=== PATIENT | female | born 1995 | race Caucasian/White ===

== ENCOUNTER 2021-04-23 09:49 | Emergency (ER) | payer OTHER, MEDICAID ==
[~2021-04-23] VITALS: Ht 172.7 cm; Wt 130.2 kg
--- NOTE | 2021-04-23 10:02 | ED Abdominal Pain ---
General Stated Complaint: N/V/D; ABD/BACK TIGHTNESS DURING PREG Source of Information: Patient Exam Limitations: No Limitations History of Present Illness Date Seen by Provider: Apr 23, 2021 Time Seen by Provider: 09:57 Initial Comments 25yoF at 19 weeks 5 days gestation coming in for 2 days n/v/d that is nb/nb and low back/low abdominal cramping. Prior had labor around 24 weeks and the tightness in her abdomen and back feel similar. Denies vaginal bleeding, loss of fluids, contractions. The pain lasts about a minutes at a time about every 10 minutes. Took some tylenol this morning which helped some. Her son recently had a GI bug. She has been fully vaccinated for COVID. Allergies and Home Medications Allergies Coded Allergies: No Known Drug Allergies (Unverified , 04/23/21) Patient Home Medication List Home Medication List Reviewed: Yes Review of Systems Review of Systems Constitutional: No chills, No fever EENTM: No Blurred Vision Respiratory: Denies Cough Cardiovascular: Denies Chest Pain Gastrointestinal: Abdominal Pain; Denies Diarrhea, Denies Nausea, Denies Vomiting Genitourinary: Denies Burning Musculoskeletal: no symptoms reported Skin: no symptoms reported Psychiatric/Neurological: No Symptoms Reported Endocrine: No Symptoms Reported Hematologic/Lymphatic: No Symptoms Reported All Other Systems Reviewed Negative Unless Noted: Yes Past Cxchtjr-Flndmh-Mtlfso Hx Patient Social History Tobacco Use?: No Past Medical History Surgeries: Yes Gallbladder Physical Exam Vital Signs Vital Signs - First Documented 04/23/21 09:53 Temp 36.0 Pulse 109 Resp 16 B/P (MAP) 146/96 (113) Pulse Ox 97 O2 Delivery Room Air Capillary Refill : Height/Weight/BMI Height: '" Weight: lbs. oz. kg; BMI Method: General Appearance: WD/WN, no apparent distress HEENT: PERRL/EOMI, normal ENT inspection, pharynx normal Neck: non-tender, full range of motion, supple, normal inspection Respiratory: chest non-tender, lungs clear, normal breath sounds, no respiratory distress, no accessory muscle use Cardiovascular: regular rate, rhythm, no edema, no murmur Gastrointestinal: normal bowel sounds, non tender, soft; No distended, No guarding, No rebound, No tenderness Extremities: normal range of motion, non-tender, normal inspection, no pedal edema, no calf tenderness, normal capillary refill Back: normal inspection, no CVA tenderness, no vertebral tenderness Neurologic/Psychiatric: no motor/sensory deficits, alert, normal mood/affect Skin: normal color, warm/dry Lymphatic: no adenopathy Progress/Results/Core Measures Results/Orders Lab Results Laboratory Tests Test 04/23/21 10:33 04/23/21 10:38 04/23/21 10:50 Range/Units Influenza Type A Antigen NEGATIVE NEGATIVE Influenza Type B Antigen NEGATIVE NEGATIVE Urine Color ORANGE Urine Clarity CLOUDY Urine pH 6.0 5-9 Urine Specific [place] 1.025 H 1.016-1.022 Urine Protein TRACE H NEGATIVE Urine Glucose (UA) NEGATIVE NEGATIVE Urine Ketones TRACE H NEGATIVE Urine Nitrite NEGATIVE NEGATIVE Urine Bilirubin 1+ H NEGATIVE Urine Urobilinogen 0.2 < = 1.0 MG/DL Urine Leukocyte Esterase 1+ H NEGATIVE Urine RBC (Auto) NEGATIVE NEGATIVE Urine RBC 0-2 /HPF Urine WBC 5-10 H /HPF Urine Squamous Epithelial Cells 2-5 /HPF Urine Crystals NONE /LPF Urine Bacteria LARGE H /HPF Urine Casts NONE /LPF Urine Mucus SMALL H /LPF Urine Culture Indicated YES White Blood Count 9.4 4.3-11.0 10^3/uL Red Blood Count 4.46 3.80-5.11 10^6/uL Hemoglobin 13.4 11.5-16.0 g/dL Hematocrit 39 35-52 % Mean Corpuscular Volume 86 80-99 fL Mean Corpuscular Hemoglobin 30 25-34 pg Mean Corpuscular Hemoglobin Concent 35 32-36 g/dL Red Cell Distribution Width 13.0 10.0-14.5 % Platelet Count 199 130-400 10^3/uL Mean Platelet Volume 11.2 9.0-12.2 fL Immature Granulocyte % (Auto) 0 % Neutrophils (%) (Auto) 76 H 42-75 % Lymphocytes (%) (Auto) 18 12-44 % Monocytes (%) (Auto) 5 0-12 % Eosinophils (%) (Auto) 1 0-10 % Basophils (%) (Auto) 0 0-10 % Neutrophils # (Auto) 7.1 1.8-7.8 X 10^3 Lymphocytes # (Auto) 1.7 1.0-4.0 X 10^3 Monocytes # (Auto) 0.5 0.0-1.0 X 10^3 Eosinophils # (Auto) 0.1 0.0-0.3 10^3/uL Basophils # (Auto) 0.0 0.0-0.1 10^3/uL Immature Granulocyte # (Auto) 0.0 0.0-0.1 10^3/uL Sodium Level 134 L 135-145 MMOL/L Potassium Level 3.6 3.6-5.0 MMOL/L Chloride Level 103 98-107 MMOL/L Carbon Dioxide Level 19 L 21-32 MMOL/L Anion Gap 12 5-14 MMOL/L Blood Urea Nitrogen 8 7-18 MG/DL Creatinine 0.65 0.60-1.30 MG/DL Estimat Glomerular Filtration Rate 112 BUN/Creatinine Ratio 12 Glucose Level 83 70-105 MG/DL Calcium Level 9.2 8.5-10.1 MG/DL Corrected Calcium 9.3 8.5-10.1 MG/DL Total Bilirubin 0.6 0.1-1.0 MG/DL Aspartate Amino Transf (AST/SGOT) 18 5-34 U/L Alanine Aminotransferase (ALT/SGPT) 24 0-55 U/L Alkaline Phosphatase 111 40-136 U/L Total Protein 7.4 6.4-8.2 GM/DL Albumin 3.9 3.2-4.5 GM/DL Lipase 21 8-78 U/L My Orders Orders - HOWARD BARNES MD Cbc With Automated Diff (04/23/21 10:24) Comprehensive Metabolic Panel (04/23/21 10:24) Lipase (04/23/21 10:24) Ua Culture If Indicated (04/23/21 10:24) Influenza A & B Antigens (04/23/21 10:24) Ed Iv/Invasive Line Start (04/23/21 10:24) Lactated Ringers (Lr 1000 Ml Iv Solution (04/23/21 10:30) Acetaminophen Tablet (Tylenol Tablet) (04/23/21 10:30) Covid 19 Inhouse Test (04/23/21 10:31) Ondansetron Injection (Zofran Injectio (04/23/21 11:00) Urine Culture (04/23/21 10:38) D5 Lr Iv Solution (Dextrose 5%/Lactated (04/23/21 11:03) Cefdinir Capsule (Omnicef Capsule) (04/23/21 11:15) Medications Given in ED Current Medications Medications Dose Ordered Sig/Greta Route Start Time Stop Time Status Last Admin Dose Admin Acetaminophen 1,000 mg ONCE ONCE PO 04/23/21 10:30 04/23/21 10:31 DC 04/23/21 10:50 1,000 MG Cefdinir 300 mg ONCE ONCE PO 04/23/21 11:15 04/23/21 11:16 DC 04/23/21 11:14 300 MG Lactated Ringer's 1,000 ml @ 0 mls/hr Q0M ONCE IV 04/23/21 10:30 04/23/21 10:31 DC 04/23/21 10:50 0 MLS/HR Ondansetron HCl 4 mg ONCE ONCE IVP 04/23/21 11:00 04/23/21 11:01 DC 04/23/21 10:57 4 MG Vital Signs/I&O 04/23/21 09:53 Temp 36.0 Pulse 109 Resp 16 B/P (MAP) 146/96 (113) Pulse Ox 97 O2 Delivery Room Air Progress Progress Note : Progress Note 25-year-old female with above history coming in due to vomiting, diarrhea, lower abdominal and lower back cramping. ABCs were intact and vitals are stable on presentation. Physical exam with a soft, nontender abdomen. Uterus just at the level of the umbilicus. She is mildly tachycardic but given the volume depletion, IV placed and she was given a bolus of IV fluids. Given Tylenol as well for the cramping. heart tones positive at a rate of 155. Basic labs obtained including liver function test, urinalysis, COVID test, flu test. Basic labs are reassuring including normal LFTs and white blood cell count. Urinalysis does have ketones, bacteria, leukocyte esterase. Given her lower abdominal discomfort with this urinalysis and her being , will treat her as cystitis. She is having some lower back cramping, so we will give cefdinir just in case we need kidney penetration as well. On reassessment after 2 L of IV fluids, her symptoms have nearly completely resolved. She was feeling much better. I believe she is stable for discharge with outpatient follow-up. She was sent home with strict return precautions peer Departure Impression Primary Impression: Qualified Codes: Z3A.20 - 20 weeks gestation of Additional Impressions: Cystitis Vomiting and diarrhea Disposition: 01 HOME, SELF-CARE Condition: Stable Departure-Patient Inst. Decision time for Depature: 12:05 Referrals: BRITTA RAI MD (PCP) Primary Care Physician Patient Instructions: Urinary Tract Infection, Adult (DC), Nausea and Vomiting, Adult ED Add. Discharge Instructions: It does appear like you have a urinary tract infection, which during can cause more symptoms than usually would have. You will take an antibiotic for 5 days. Please try to drink plenty of fluids and you can take Tylenol for pain. Please follow-up with your OB on Monday if you are not feeling 100%. Your COVID test will come back in the next couple hours and we will call you. Scripts Ondansetron (Ondansetron Odt) 4 Mg Tab.rapdis 4 MG PO Q6H PRN for NAUSEA/VOMITING-1ST LINE for 5 Days, #20 TAB Prov: HOWARD BARNES MD 04/23/21 Cefdinir (Cefdinir) 300 Mg Capsule 300 MG PO BID for 5 Days, #10 CAP 0 Refills Prov: HOWARD BARNES MD 04/23/21 Work/School Note: Work Release Form Date Seen in the Emergency Department: Apr 23, 2021 Return to Work: Apr 24, 2021 Restrictions: Return-No Vomiting(24hrs) HOWARD BARNES MD Apr 23, 2021 10:02
[2021-04-23] MEDS ORDERED: LACTATED RINGERS 1,000 ML IV ONE (10:30)
[2021-04-23] MEDS ORDERED: ACETAMINOPHEN 500 MG TAB (TYLENOL) PO ONE (10:30)
[2021-04-23 10:57] LABS: BILIRUBIN,URINE 1+ (NEGATIVE); CLARITY,URINE CLOUDY; COLOR,URINE ORANGE; GLUCOSE, URINE (UA) NEGATIVE (NEGATIVE); KETONES,URINE TRACE (NEGATIVE); LEUKOCYTE ESTERASE ,URINE 1+ (NEGATIVE); NITRITE,URINE NEGATIVE (NEGATIVE); PROTEIN,URINE TRACE (NEGATIVE); RBC,URINE 0-2 /HPF
[2021-04-23 10:58] LABS: BACTERIA,URINE LARGE /HPF
[2021-04-23] MEDS ORDERED: ONDANSETRON 4 MG/2 ML (SDV) Z0FRAN IVP ONE (11:00)
[2021-04-23] MEDS ORDERED: D5 LR IV SOLUTION 1,000 ML IV STA (11:03)
[2021-04-23 11:08] LABS: BASOPHILS % (AUTO) 0 % (0-10); EOSINOPHILS # (AUTO) 0.1 10^3/uL (0.0-0.3); EOSINOPHILS % (AUTO) 1 % (0-10); HEMATOCRIT 39 % (35-52); HEMOGLOBIN 13.4 g/dL (11.5-16.0); LYMPHOCYTES # (AUTO) 1.7 X 10^3 (1.0-4.0); LYMPHOCYTES % (AUTO) 18 % (12-44); MEAN CORPUSCULAR HEMOGLOBIN 30 pg (25-34); MEAN CORPUSCULAR HGB CONC 35 g/dL (32-36); MEAN CORPUSCULAR VOLUME 86 fL (80-99); MEAN PLATELET VOLUME 11.2 fL (9.0-12.2); MONOCYTES # (AUTO) 0.5 X 10^3 (0.0-1.0); MONOCYTES % (AUTO) 5 % (0-12); NEUTROPHILS # (AUTO) 7.1 X 10^3 (1.8-7.8); NEUTROPHILS % (AUTO) 76 % (42-75); PLATELET COUNT 199 10^3/uL (130-400); WHITE BLOOD COUNT 9.4 10^3/uL (4.3-11.0)
[2021-04-23] MEDS ORDERED: CEFDINIR 300 MG (OMNICEF) CAP PO ONE (11:15)
[2021-04-23 11:29] LABS: POTASSIUM 3.6 MMOL/L (3.6-5.0)
[2021-04-23 11:30] LABS: ALBUMIN 3.9 GM/DL (3.2-4.5); BILIRUBIN,TOTAL 0.6 MG/DL (0.1-1.0); CALCIUM 9.2 MG/DL (8.5-10.1); CREATININE SERUM 0.65 MG/DL (0.60-1.30); TOTAL PROTEIN 7.4 GM/DL (6.4-8.2)
[2021-04-23] MEDS ORDERED: ONDA4TAB11 PO (11:48)
[2021-04-23] MEDS ORDERED: CEFD300C3 PO (11:48)
[2021-04-23 12:02] VITALS: BP 124/46
== END 2021-04-23 11:55 | disposition home or self-care (01) ==
LOC: ER FS 09:51
DX: O23.12 Infections of bladder in pregnancy, second trimester (principal); O21.0 Mild hyperemesis gravidarum; O99.612 Diseases of the digestive system complicating pregnancy, second trimester; R19.7 Diarrhea, unspecified; Z20.822 Contact with and (suspected) exposure to COVID-19; Z3A.20 20 weeks gestation of pregnancy
CPT/HCPCS: 36415; 80053; 81000; 83690; 85025; 87088; 87636; 87804

== ENCOUNTER 2021-08-30 11:04 | Inpatient (IN) | payer OTHER, MEDICAID ==
[2021-08-30] VITALS (50 sets, daily range): BP systolic 82–141; BP diastolic 43–79
[~2021-08-30] VITALS: Ht 172.7 cm; Wt 136.3 kg
[~2021-08-30 11:04] MED LIST: CEFD300C3 PO; ONDA4TAB11 PO
[2021-08-30] MEDS ORDERED: MINERAL OIL 30 ML TOP PRN (12:00)
[2021-08-30] MEDS ORDERED: VANCOMYCIN INJECTION 1,000 MG in NS (IVPB) 250 ML IV SCH (12:15)
[2021-08-30 12:59] LABS: BASOPHILS % (AUTO) 0 % (0-10); EOSINOPHILS % (AUTO) 0 % (0-10); HEMATOCRIT 35 % (35-52); HEMOGLOBIN 11.9 g/dL (11.5-16.0); LYMPHOCYTES # (AUTO) 2.3 10^3/uL (1.0-4.0); LYMPHOCYTES % (AUTO) 22 % (12-44); MEAN CORPUSCULAR HEMOGLOBIN 30 pg (25-34); MEAN CORPUSCULAR HGB CONC 34 g/dL (32-36); MEAN CORPUSCULAR VOLUME 87 fL (80-99); MEAN PLATELET VOLUME 12.3 fL (9.0-12.2); MONOCYTES # (AUTO) 0.7 10^3/uL (0.0-1.0); MONOCYTES % (AUTO) 7 % (0-12); NEUTROPHILS # (AUTO) 7.2 10^3/uL (1.8-7.8); NEUTROPHILS % (AUTO) 70 % (42-75); PLATELET COUNT 190 10^3/uL (130-400); WHITE BLOOD COUNT 10.2 10^3/uL (4.3-11.0)
[2021-08-30 13:12] LABS: ALBUMIN 3.3 GM/DL (3.2-4.5); POTASSIUM 3.9 MMOL/L (3.6-5.0)
[2021-08-30 13:13] LABS: CALCIUM 8.9 MG/DL (8.5-10.1)
[2021-08-30 13:14] LABS: TOTAL PROTEIN 6.6 GM/DL (6.4-8.2)
[2021-08-30] MEDS: D5 LR IV SOLUTION 1,000 ML IV SCH ×2 (13:15→20:23)
[2021-08-30 13:16] LABS: BILIRUBIN,TOTAL 0.6 MG/DL (0.1-1.0)
[2021-08-30 13:18] LABS: CREATININE SERUM 0.68 MG/DL (0.60-1.30)
[2021-08-30 13:21] LABS: URIC ACID 3.6 MG/DL (2.6-7.2)
--- NOTE | 2021-08-30 13:34 | History & Physical-OB ---
OB - Chief Complaint & HPI Date/Time Date of Admission: Date of Admission: August 30, 2021 at 11:06 Date seen by a Provider: August 30, 2021 Time Seen by a Provider: 11:30 Chief Complaint/History OB-Reason for Admission/Chief: Obstetrical Complication (Pre eclampsia) Hx : 2 Hx Para: 1 Expected Date of Delivery: September 12, 2021 Gestational Age in Weeks: 38 Gestational Age in Days: 1 Indication for induction: medical complication (Pre eclampsia, advanced dilation, h/o delivery) History of Labs A neg, Ab neg, Rub Imm HIV/RPR/HepB/C NR Abnormal 1 hr GTT, Normal 3 hr GTT GBS + Allergies and Home Medications Allergies Coded Allergies: No Known Drug Allergies (Unverified , 04/23/21) Patient Home Medication List Home Medication List Reviewed: Yes Cefdinir (Cefdinir) 300 Mg Capsule, 300 MG PO BID Prescribed by: HOWARD BARNES on 04/23/21 1148 Ondansetron (Ondansetron Odt) 4 Mg Tab.rapdis, 4 MG PO Q6H PRN for NAUSEA/VOMITING-1ST LINE Prescribed by: HOWARD BARNES on 04/23/21 1148 OB - History Hx of Present Ultrasounds: Normal mid trimester US Obstetrical Complications: Pre-eclampsia Medical Complications: None Obstetrical History Hx : 2 Hx Para: 1 Hx # Pregnancies: 1 Number of Living Children: 1 Patient Past Medical History Obesity Social History/Family History Alcohol Use: Denies Use Immunizations Influenza Vaccine Up-to-Date: Yes; Up-to-Date First/Initial COVID19 Vaccine: April 2020 Second COVID19 Vaccination: May 2020 Hepatitis A: No Hepatitis B: No Tetanus Booster (TDap): Less than 5yrs (07/12/21) Rubella: immune RPR/VDRL: Negative GBS Status: Positive HBsAG: Negative OB - Admission Exam Physical Exam Vitals: Vital Signs 08/30/21 11:30 Temp 36.5 Pulse 90 Resp 18 Pulse Ox 98 O2 Delivery Room Air HEENT: NCAT Heart: Rhythm Normal Lungs: Clear Abdomen: Gravid Cervical Dilatation: 4cm Effacement: 75% Station: 0 Membranes: Intact Heart Rate: 140's Accelerations: Accelerations Present Sam Scoring Tool (Modified) Dilation (cm): 3-4cm (2) Effacement (%): 51-79% (2) Descent/Station: -1,0 (2) Cervix Consistency: Medium(1) Cervix Position: Middle/Mid-Position (1) Add 1 point for: Each previous vaginal delivery (1) Labs Laboratory Tests Test 08/30/21 12:42 Range/Units White Blood Count 10.2 4.3-11.0 10^3/uL Red Blood Count 4.00 3.80-5.11 10^6/uL Hemoglobin 11.9 11.5-16.0 g/dL Hematocrit 35 35-52 % Mean Corpuscular Volume 87 80-99 fL Mean Corpuscular Hemoglobin 30 25-34 pg Mean Corpuscular Hemoglobin Concent 34 32-36 g/dL Red Cell Distribution Width 13.3 10.0-14.5 % Platelet Count 190 130-400 10^3/uL Mean Platelet Volume 12.3 H 9.0-12.2 fL Immature Granulocyte % (Auto) 0 % Neutrophils (%) (Auto) 70 42-75 % Lymphocytes (%) (Auto) 22 12-44 % Monocytes (%) (Auto) 7 0-12 % Eosinophils (%) (Auto) 0 0-10 % Basophils (%) (Auto) 0 0-10 % Neutrophils # (Auto) 7.2 1.8-7.8 10^3/uL Lymphocytes # (Auto) 2.3 1.0-4.0 10^3/uL Monocytes # (Auto) 0.7 0.0-1.0 10^3/uL Eosinophils # (Auto) 0.0 0.0-0.3 10^3/uL Basophils # (Auto) 0.0 0.0-0.1 10^3/uL Immature Granulocyte # (Auto) 0.0 0.0-0.1 10^3/uL Sodium Level 136 135-145 MMOL/L Potassium Level 3.9 3.6-5.0 MMOL/L Chloride Level 107 98-107 MMOL/L Albumin 3.3 3.2-4.5 GM/DL OB - Assessment/Plan/Diagnosis Assessment Assessment: active labor, group B positive strep Admission Dx Third Trimester 38 week gestation Pre eclampsia Previous h/o delivery GBS + Admission Status: Inpatient Order (span 2 midnights) Reason for Inpatient Admission: Pre eclampsia Labor Plan Other Plan 26 yo @ 38.1 wga here for Pre eclampsia Plan - GBS + - Expectant management - AROM after antibiotics given CHERYL LESTER MD August 30, 2021 13:34
[2021-08-30] MEDS ORDERED: CATHETER FLUSH 10 ML SYR IV SCH (14:00)
[2021-08-30] MEDS ORDERED: fentaNYL 2 mcg/ml BUPIVA 0.125 100 ML ONE (15:28)
[2021-08-30] MEDS ORDERED: LIDOCAINE/EPI 2% 1:200,00 (XYLOCAINE) 10 ML VIAL ONE (15:56)
[2021-08-30] MEDS ORDERED: BUPIVACAINE 0.25% 10 ML (SENSORCAINE) VIAL ONE (16:16)
[2021-08-30] MEDS ORDERED: fentaNYL INJ 100 MCG/2 ML AMP ONE (16:16)
[2021-08-30] MEDS ORDERED: NALOXONE 0.4 MG/ML 1 ML (NARCAN) VIAL IV PRN ×2 (16:45)
[2021-08-30] MEDS ORDERED: EPIDURAL (fentaNYL 2 MCG/ML BUPIVA 0.125%)100 ML BAG EPI PRN (16:45)
[2021-08-30] MEDS ORDERED: diphenhydrAMINE 50 MG/ML INJ (BENADRYL) IV PRN (16:45)
[2021-08-30] MEDS ORDERED: METOCLOPRAMIDE INJ 10 MG/2 ML (REGLAN) IV PRN (16:45)
[2021-08-30] MEDS ORDERED: LACTATED RINGERS 1,000 ML IV SCH (16:45)
[2021-08-30] MEDS ORDERED: OXYTOCIN PRE-MIX DRIP 500 ML IV SCH (17:15)
--- NOTE | 2021-08-30 17:41 | Labor Progress Note ---
Labor Progress Note Labor Progress Note Date Seen by Provider: August 30, 2021 Time Seen by Provider: 17:39 Subjective: Pt denies complaints. Feeling much better since getting the epidural. Objective: /-1 Reactive FHT Assessment/Plan: Reba Meza is a (26 /Para 2 / 1,Gestational Age (wks)38.1 here for pre eclampsia and contractions CEFM/TOCO AROM 1730 Clear Epidural for pain control Expectant management, consider augmentation with pitocin if not changing after AROM GBS +, PCN allergy, on Vancomycin Vitals - Labs Vital Signs - I&O Vital Signs Date Time Temp Pulse Resp B/P (MAP) Pulse Ox O2 Delivery O2 Flow Rate FiO2 08/30/21 16:40 64 82/43 (56) 100 08/30/21 16:38 76 16 103/56 (72) 99 08/30/21 16:34 97 18 113/62 (79) 99 Room Air 08/30/21 16:31 84 18 109/62 (78) 99 Room Air 08/30/21 16:28 72 18 112/67 (82) 100 Room Air 08/30/21 16:25 80 16 112/68 (83) 100 Room Air 08/30/21 16:21 80 18 121/71 (88) 100 Room Air 08/30/21 12:14 87 18 122/68 (86) 08/30/21 11:55 90 18 119/71 (87) 98 Room Air 08/30/21 11:30 36.5 90 16 132/79 (96) 98 Room Air 08/30/21 11:30 36.5 90 18 98 Room Air Labs Laboratory Tests 08/30/21 12:42: White Blood Count 10.2, Red Blood Count 4.00, Hemoglobin 11.9, Hematocrit 35, Me an Corpuscular Volume 87, Mean Corpuscular Hemoglobin 30, Mean Corpuscular Hemoglobin Concent 34, Red Cell Distribution Width 13.3, Platelet Count 190, Mean Platelet Volume 12.3H, Immature Granulocyte % (Auto) 0, Neutrophils (%) (Auto) 70, Lymphocytes (%) (Auto) 22, Monocytes (%) (Auto) 7, Eosinophils (%) (Auto) 0, Basophils (%) (Auto) 0, Neutrophils # (Auto) 7.2, Lymphocytes # (Auto) 2.3, Monocytes # (Auto) 0.7, Eosinophils # (Auto) 0.0, Basophils # (Auto) 0.0, Immature Granulocyte # (Auto) 0.0, Urine Protein 11, Urine Creatinine 143H, Urine Protein/Creatinine Ratio 0.08, Sodium Level 136, Potassium Level 3.9, Chloride Level 107, Carbon Dioxide Level 20L, Anion Gap 9, Blood Urea Nitrogen 9, Creatinine 0.68, Estimat Glomerular Filtration Rate 124, BUN/Creatinine Ratio 13, Glucose Level 78, Uric Acid 3.6, Calcium Level 8.9, Corrected Calcium 9.5, Total Bilirubin 0.6, Aspartate Amino Transf (AST/SGOT) 11, Alanine Aminotransferase (ALT/SGPT) 18, Alkaline Phosphatase 186H, Lactate Dehydrogenase 213, Total Protein 6.6, Albumin 3.3 CHERYL LESTER MD August 30, 2021 17:41
[2021-08-30] MEDS: ONDANSETRON 4 MG/2 ML (SDV) Z0FRAN IV PRN ×2 (17:47→22:06)
[2021-08-31] VITALS (14 sets, daily range): BP systolic 102–127; BP diastolic 55–72
--- NOTE | 2021-08-31 00:33 | OB Labor & Delivery Record ---
Vag Delivery Note Vag Delivery Note Date of Delivery: 08/31/21 Preoperative Diagnosis: Reba Meza is a (26 /Para 2 / 1, Gestational Age (wks)38.1 here with contractions and Pre eclampsia with mild features Postoperative Diagnosis: Same Surgeon: CHERYL LESTER MD Farm Boss: Brittany Ding MS3 Anesthesia: Epidural Delivery Type: @ 0010 Findings: Viable female infant, apgars 9/9, weight 7#8, 3405 grams Lacerations: 1st degree perineal, right labial abrasion Intact placenta with 3 vessel cord. No nuchal cord, body cord or shoulder dystocia Estimated Blood Loss: 100 ml Complications: None Condition: Stable Description of Procedure: The patient is a 26 year old female who presented for IOL for pre eclampsia. She was admitted and informed consent was obtained. Her labor course was unremarkable. She progressed to complete dilatation and began to push. She was then set up for delivery. The 's head was delivered atraumatically in the CRISTOFER position. The shoulders and remainder of the infant's body were then delivered without difficulty. Upon delivery, the head was held below the level of the perineum and the mouth and nares were bulb suctioned. The cord was doubly clamped and cut after 3 min delay and the was attended to by the pediatric staff on maternal abdomen. An intact placenta with 3-vessel cord delivered via Vamsi and there was found to be minimal bleeding.~ Vigorous fundal massage was performed and the fundus was found to be firm. IV oxytocin was given. Examination of the vagina and perineum revealed a 1st degree perineal laceration and right labial abrasion that did not require repair. Following the repair, sponge, instrument and needle counts were correct. Mom and baby were both in stable condition in the labor suite. Vitals - Labs Vital Signs - I&O Vital Signs Date Time Temp Pulse Resp B/P (MAP) Pulse Ox O2 Delivery O2 Flow Rate FiO2 08/30/21 22:45 79 18 89/54 (66) 99 Room Air 08/30/21 22:30 93 18 141/61 (87) 99 Room Air 08/30/21 22:18 76 18 110/57 (74) 99 Room Air 08/30/21 22:15 77 18 98/57 (71) 99 Room Air 08/30/21 22:00 78 18 101/55 (70) 99 Room Air 08/30/21 21:45 83 18 99 Room Air 08/30/21 21:30 95 18 94/48 (63) 100 Room Air 08/30/21 21:15 74 18 93/51 (65) 98 Room Air 08/30/21 21:00 64 18 90/54 (66) 99 Room Air 08/30/21 20:45 36.3 68 18 91/50 (64) 99 Room Air 08/30/21 20:30 76 18 120/61 (80) 99 Room Air 08/30/21 20:15 69 18 114/59 (77) 99 Room Air 08/30/21 20:00 85 18 119/64 (82) 99 Room Air 08/30/21 19:45 75 18 108/57 (74) 97 Room Air 08/30/21 19:30 77 18 110/59 (76) 97 Room Air 08/30/21 19:15 76 18 112/59 (76) 97 Room Air 08/30/21 18:25 68 18 113/57 (75) 99 Room Air 08/30/21 18:10 83 16 118/61 (80) 99 Room Air 08/30/21 17:55 97 18 120/62 (81) 98 Room Air 08/30/21 17:44 120 18 137/75 (95) 99 Room Air 08/30/21 17:38 93 16 117/56 (76) 100 Room Air 08/30/21 17:31 83 91/50 (64) 08/30/21 17:27 80 97/55 (69) 08/30/21 17:21 77 94/52 (66) 98 08/30/21 17:15 36.3 95 18 96/52 (67) 99 08/30/21 17:11 83 16 92/55 (67) 99 08/30/21 17:05 92 93/46 (62) 99 08/30/21 17:01 100 100/59 (73) 08/30/21 16:58 88 98/55 (69) 98 08/30/21 16:55 74 100/58 (72) 08/30/21 16:53 88 87/54 (65) 08/30/21 16:51 90 89/52 (64) 08/30/21 16:49 81 92/57 (69) 08/30/21 16:48 93 93/60 (71) 08/30/21 16:45 68 82/47 (59) 08/30/21 16:43 81 84/50 (61) 08/30/21 16:40 64 82/43 (56) 100 08/30/21 16:38 76 16 103/56 (72) 99 08/30/21 16:34 97 18 113/62 (79) 99 Room Air 08/30/21 16:31 84 18 109/62 (78) 99 Room Air 08/30/21 16:28 72 18 112/67 (82) 100 Room Air 08/30/21 16:25 80 16 112/68 (83) 100 Room Air 08/30/21 16:21 80 18 121/71 (88) 100 Room Air 08/30/21 12:14 87 18 122/68 (86) 08/30/21 11:55 90 18 119/71 (87) 98 Room Air 08/30/21 11:30 36.5 90 16 132/79 (96) 98 Room Air 08/30/21 11:30 36.5 90 18 98 Room Air I & O 08/31/21 07:00 Intake Total 1250 ml Balance 1250 ml Labs Laboratory Tests 08/30/21 12:42: White Blood Count 10.2, Red Blood Count 4.00, Hemoglobin 11.9, Hematocrit 35, Mean Corpuscular Volume 87, Mean Corpuscular Hemoglobin 30, Mean Corpuscular Hemoglobin Concent 34, Red Cell Distribution Width 13.3, Platelet Count 190, Mean Platelet Volume 12.3H, Immature Granulocyte % (Auto) 0, Neutrophils (%) (Auto) 70, Lymphocytes (%) (Auto) 22, Monocytes (%) (Auto) 7, Eosinophils (%) (Auto) 0, Basophils (%) (Auto) 0, Neutrophils # (Auto) 7.2, Lymphocytes # (Auto) 2.3, Monocytes # (Auto) 0.7, Eosinophils # (Auto) 0.0, Basophils # (Auto) 0.0, Immature Granulocyte # (Auto) 0.0, Urine Protein 11, Urine Creatinine 143H, Urine Protein/Creatinine Ratio 0.08, Sodium Level 136, Potassium Level 3.9, Chloride Level 107, Carbon Dioxide Level 20L, Anion Gap 9, Blood Urea Nitrogen 9, Creatinine 0.68, Estimat Glomerular Filtration Rate 124, BUN/Creatinine Ratio 13, Glucose Level 78, Uric Acid 3.6, Calcium Level 8.9, Corrected Calcium 9.5, Total Bilirubin 0.6, Aspartate Amino Transf (AST/SGOT) 11, Alanine Aminotransferase (ALT/SGPT) 18, Alkaline Phosphatase 186H, Lactate Dehydrogenase 213, Total Protein 6.6, Albumin 3.3 CHERYL LESTER MD August 31, 2021 00:33
[2021-08-31] MEDS ORDERED: WITCH HAZEL(TUCKS) 40 EA JAR TOP PRN (00:45)
[2021-08-31] MEDS ORDERED: OXYTOCIN PRE-MIX DRIP 500 ML IV SCH (00:45)
[2021-08-31] MEDS ORDERED: BENZOCAINE/MENTHOL (DERMOPLAST) 56 ML CAN TP PRN (00:45)
[2021-08-31] MEDS ORDERED: IBUPROFEN 600 MG (MOTRIN) TAB PO ONE ×2 (02:04→21:21)
[2021-08-31] MEDS: IBUPROFEN 600 MG (MOTRIN) TAB PO SCH ×4 (02:07→21:30)
[2021-08-31] MEDS ORDERED: CATHETER FLUSH 10 ML SYR IV SCH (06:00)
[2021-08-31] MEDS: ACETAMINOPHEN 500 MG TAB (TYLENOL) PO SCH ×4 (06:46→21:31)
[2021-08-31] MEDS: DOCUSATE SODIUM 100 MG (COLACE) CAP PO SCH ×2 (08:30→21:30)
--- NOTE | 2021-08-31 09:55 | Anesthesia-Regional Post-Op ---
Regional Patient Condition Mental Status: Alert, Oriented x3 Circulation: Same as Pre-Op Headache: Absent Sensation: Full Recovery Motor Block: Absent Post Op Complications Complications None Follow Up Care/Instructions Patient Instructions None needed. Anesthesia/Patient Condition Patient is doing well, no complaints, stable vital signs, no apparent adverse anesthesia problems. No complications reported per nursing. LAILA RIVAS CRNA August 31, 2021 09:55
[2021-08-31] MEDS ORDERED: ACETAMINOPHEN 500 MG TAB (TYLENOL) ONE (21:21)
[2021-09-01 01:15] VITALS: BP 111/67
[2021-09-01] MEDS: IBUPROFEN 600 MG (MOTRIN) TAB PO SCH ×2 (03:27→09:09)
[2021-09-01] MEDS: ACETAMINOPHEN 500 MG TAB (TYLENOL) PO SCH ×2 (03:28→09:09)
[2021-09-01] MEDS ORDERED: CALCIUM CARBONATE 500 MG (TUMS) TAB.CHEW ONE (03:33)
[2021-09-01] MEDS ORDERED: CALCIUM CARBONATE 500 MG (TUMS) TAB.CHEW PO PRN ×2 (03:45→04:00)
[2021-09-01 05:41] LABS: BASOPHILS % (AUTO) 0 % (0-10); EOSINOPHILS # (AUTO) 0.1 10^3/uL (0.0-0.3); EOSINOPHILS % (AUTO) 1 % (0-10); HEMATOCRIT 33 % (35-52); LYMPHOCYTES # (AUTO) 2.4 10^3/uL (1.0-4.0); LYMPHOCYTES % (AUTO) 33 % (12-44); MEAN CORPUSCULAR HEMOGLOBIN 30 pg (25-34); MEAN CORPUSCULAR HGB CONC 33 g/dL (32-36); MEAN CORPUSCULAR VOLUME 90 fL (80-99); MEAN PLATELET VOLUME 12.3 fL (9.0-12.2); MONOCYTES # (AUTO) 0.6 10^3/uL (0.0-1.0); MONOCYTES % (AUTO) 9 % (0-12); NEUTROPHILS # (AUTO) 4.2 10^3/uL (1.8-7.8); NEUTROPHILS % (AUTO) 56 % (42-75); PLATELET COUNT 158 10^3/uL (130-400); WHITE BLOOD COUNT 7.4 10^3/uL (4.3-11.0)
[2021-09-01 06:35] VITALS: BP 121/63
[2021-09-01 09:00] VITALS: BP 133/64
[2021-09-01] MEDS: DOCUSATE SODIUM 100 MG (COLACE) CAP PO SCH (09:09)
--- NOTE | 2021-09-01 10:13 | Discharge Summary ---
Diagnosis/Chief Complaint Date of Admission August 30, 2021 at 11:06 Date of Discharge 09/01/21 Admission Diagnosis Admission Diagnosis Third Trimester 38 week gestation Pre eclampsia with mild features Obesity in Discharge Diagnosis of term female infant GBS + adequately treated Discharge Summary-Simple/Stand Procedures Epidural Discharge Physical Examination Allergies: Coded Allergies: amoxicillin (Verified Allergy, Unknown, Hives, 08/30/21) morphine (Verified Allergy, Unknown, Vomiting, 08/30/21) Vitals & I&Os Vital Sign - Last 12Hours Date Time Temp Pulse Resp B/P (MAP) Pulse Ox O2 Delivery O2 Flow Rate FiO2 09/01/21 06:35 36.1 80 18 121/63 (82) 97 Room Air General Appearance: Alert, Oriented X3, Cooperative, No Acute Distress Respiratory: Clear to Auscultation, Normal Air Movement Cardiovascular: Regular Rate, No Murmurs Abdominal: Normal Bowel Sounds, Soft, No Tenderness, No Masses, Other (Fundus firm and below umbilicus) Extremities: Other (1+ edema) Neuro: Normal Speech Psych/Mental Status: Mental Status NL, Mood NL Hospital Course Was the Problem List Reviewed?: Yes See final discharge diagnosis. Discussion & Recommendations 26 yo @ 38.1 wga sent here with pre eclampsia, delivered term female via , adequately treated for GBS. F.u with Dr Kirkland Discharge Condition at discharge Stable Instructions to patient/family Please see electronic discharge instructions given to patient. Discharge Medications Reviewed and agree with Discharge Medication list on patient's Discharge Instruction sheet Copy Copies To 1: CHERYL KIRKLAND MD, HOLLY R MD September 01, 2021 10:12
[2021-09-01] MEDS ORDERED: IBUP-844 PO (10:14)
[2021-09-01] MEDS ORDERED: DOCU100C37 PO (10:14)
--- NOTE | 2021-09-01 10:14 | Discharge Summary ---
Discharge Inst-[facility] Reconcile Patient Problems Problems Reviewed?: Yes Depart Medications New, Converted or Re-Newed RX: Transmitted to Pharmacy New Medications: Docusate Sodium (Docusate Sodium) 100 Mg Capsule 100 MG PO BID, #30 CAP Ibuprofen (Ibu) 600 Mg Tablet 600 MG PO Q6HR, #90 TAB Discontinued Medications: Cefdinir (Cefdinir) 300 Mg Capsule 300 MG PO BID for 5 Days, #10 CAP 0 Refills Ondansetron (Ondansetron Odt) 4 Mg Tab.rapdis 4 MG PO Q6H PRN for NAUSEA/VOMITING-1ST LINE for 5 Days, #20 TAB Follow Up/Instructions Goal/Follow Up: F.u 6 weeks Activity Activity: Activity as Tolerated Driving Instructions: You May Drive NO SMOKING: NO SMOKING Nothing Inside Vagina: No Douching, No Symonds, No Tampons Diet Discharge Diet: No Restrictions Symptoms to Report to : Swelling Increased, Bleeding Excessive, Fever Over 101 Degrees F For Any Problems or Questions: Contact Your Physician Copies To 1: CHERYL LESTER MD, HOLLY R MD September 01, 2021 10:14
[2021-09-01 13:25] VITALS: BP 133/64
== END 2021-09-01 13:25 | disposition home or self-care (01) | DRG 807 ==
LOC: WSo 11:04 → LDRP 11:06
PROVIDERS: ADMIT Family Medicine; ATTEND Family Medicine
PROC: 10E0XZZ Delivery of Products of Conception, External Approach (ICD-10-PCS; principal; 2021-08-31)
PROC: 0HQ9XZZ Repair Perineum Skin, External Approach (ICD-10-PCS; 2021-08-31)
DX: O14.04 Mild to moderate pre-eclampsia, complicating childbirth (principal); Z37.0 Single live birth; Z3A.38 38 weeks gestation of pregnancy; O70.0 First degree perineal laceration during delivery; O99.824 Streptococcus B carrier state complicating childbirth; Z88.0 Allergy status to penicillin; Z88.1 Allergy status to other antibiotic agents; Z88.2 Allergy status to sulfonamides; O99.284 Endocrine, nutritional and metabolic diseases complicating childbirth; E66.9 Obesity, unspecified
CPT/HCPCS: 36415; 80053; 82570; 83615; 84156; 84550; 85025; 86850; 86900; 86901